=== PATIENT | female | born 1990 | race Asian ===

== ENCOUNTER 2017-12-29 22:40 | Inpatient (IN) | payer SELFPAY ==
[~2017-12-29] VITALS: Ht 164 cm; Wt 67.1 kg
[~2017-12-29 22:40] MED LIST: LIDOCAINE PF 1% 30ML(POUR BTL) INJ ONE
[2017-12-29] MEDS ORDERED: LR 1,000 ML IV ONE (23:04)
[2017-12-29] MEDS ORDERED: OXYTOCIN/0.9 % SODIUM CHLORIDE 1,000 ML IV SCH (23:04)
[2017-12-29] MEDS ORDERED: LR 1,000 ML IV SCH (23:04)
[2017-12-29] MEDS ORDERED: TERBUTALINE SULFATE 1 MG/ML VIAL SUBCUT ONE (23:15)
[2017-12-29] MEDS ORDERED: NALBUPHINE HCL 10 MG/ML AMP IVP PRN (23:15)
[2017-12-29] MEDS ORDERED: AMPICILLIN SODIUM 2 GM in NS 100 ML IV ONE (23:15)
[2017-12-29] MEDS ORDERED: AMPICILLIN SODIUM 1 GM in NS 50 ML IV SCH (23:15)
[2017-12-29] MEDS ORDERED: AMPICILLIN SODIUM 2 GM VIAL ONE ×2 (23:20→23:27)
[2017-12-29 23:39] LABS: BASOPHILS % (AUTO) 0.4 % (0.0-2.0); EOSINOPHILS # (AUTO) 0.1 K/uL (0.0-0.4); EOSINOPHILS % (AUTO) 0.5 % (0.0-4.0); HEMATOCRIT 34.3 % (36-48); HEMOGLOBIN 10.9 g/dL (12.0-16.0); LYMPHOCYTES # (AUTO) 2.5 K/uL (1.0-5.5); LYMPHOCYTES % (AUTO) 23.6 % (20.5-51.5); MEAN CORPUSCULAR HEMOGLOBIN 25 pg (27-31); MEAN CORPUSCULAR HGB CONC 32 % (32-36); MEAN CORPUSCULAR VOLUME 77 fL (79.0-98.0); MONOCYTES # (AUTO) 0.4 K/uL (0.0-1.0); MONOCYTES % (AUTO) 4.1 % (1.7-9.3); NEUTROPHILS # (AUTO) 7.5 K/uL (1.8-7.7); NEUTROPHILS % (AUTO) 71.4 % (40.0-70.0); PLATELET COUNT (AUTO) 252 K/uL (130-430); RED BLOOD CELL COUNT(AUTO) 4.48 MIL/uL (4.2-6.2); RED CELL DISTRIBUTION WIDTH 15.7 % (9.0-15.0); WHITE BLOOD COUNT (AUTO) 10.5 K/uL (4.8-10.8)
[2017-12-29 23:57] VITALS: BP_SYST 118
[2017-12-30] MEDS ORDERED: OXYTOCIN/0.9 % SODIUM CHLORIDE 1,000 ML IV ONE (01:33)
[2017-12-30] MEDS ORDERED: SENNOSIDES/DOCUSATE SODIUM 1 TAB TABLET(SENOKOT-S) PO PRN (01:45)
[2017-12-30] MEDS ORDERED: METHYLERGONOVINE MALEATE 0.2 MG TABLET PO PRN (01:45)
[2017-12-30] MEDS ORDERED: LANOLIN 7 GM OINT. TP PRN (01:45)
[2017-12-30] MEDS ORDERED: DOCUSATE SODIUM 100 MG CAPSULE PO PRN (01:45)
[2017-12-30] MEDS ORDERED: DERMOPLAST SPRAY TP PRN (01:45)
[2017-12-30] MEDS ORDERED: WITCH HAZEL LEAF 1 MED.PAD MED.PAD TP PRN (01:45)
[2017-12-30] MEDS: IBUPROFEN 600 MG TABLET PO SCH ×3 (07:10→18:50)
[2017-12-31 06:49] LABS: BASOPHILS % (AUTO) 0.3 % (0.0-2.0); EOSINOPHILS # (AUTO) 0.1 K/uL (0.0-0.4); EOSINOPHILS % (AUTO) 1.2 % (0.0-4.0); HEMOGLOBIN 9.6 g/dL (12.0-16.0); LYMPHOCYTES # (AUTO) 2.5 K/uL (1.0-5.5); LYMPHOCYTES % (AUTO) 27.5 % (20.5-51.5); MEAN CORPUSCULAR HEMOGLOBIN 25 pg (27-31); MEAN CORPUSCULAR HGB CONC 32 % (32-36); MEAN CORPUSCULAR VOLUME 78 fL (79.0-98.0); MONOCYTES # (AUTO) 0.6 K/uL (0.0-1.0); MONOCYTES % (AUTO) 6.8 % (1.7-9.3); NEUTROPHILS % (AUTO) 64.2 % (40.0-70.0); PLATELET COUNT (AUTO) 191 K/uL (130-430); RED BLOOD CELL COUNT(AUTO) 3.86 MIL/uL (4.2-6.2); RED CELL DISTRIBUTION WIDTH 16.2 % (9.0-15.0); WHITE BLOOD COUNT (AUTO) 9.2 K/uL (4.8-10.8)
== END 2017-12-31 13:00 | disposition home or self-care (01) | DRG 775 ==
LOC: OBSVTOIN 22:40 → SPU 22:40
PROVIDERS: ADMIT Obstetrics & Gynecology; ATTEND Obstetrics & Gynecology
PROC: 10E0XZZ Delivery of Products of Conception, External Approach (ICD-10-PCS; principal; 2017-12-29)
DX: O77.0 Labor and delivery complicated by meconium in amniotic fluid (principal); Z3A.37 37 weeks gestation of pregnancy; Z37.0 Single live birth
CPT/HCPCS: 36415; 85025; 86886; 86900; 86901; J0290; J2001; J2590